=== PATIENT | male | born 1955 | race Caucasian/White ===

== ENCOUNTER 2017-12-26 08:18 | Observation (INO) | payer OTHER, MEDICAID ==
[~2017-12-26] VITALS: Ht 167.6 cm; Wt 74.5 kg
[~2017-12-26 08:18] MED LIST: ALPR-138 PO; HYDR10TA16 PO; PROM25TA5 PO; PROT40TA PO; REST15CA PO; [UNRECOGNIZED DRUG - OTHER] PO
[2017-12-26 08:20] VITALS: BP 145/91; PULSE 93; RESP 20; TEMP 99.1; O2SAT 98
[2017-12-26] MEDS ORDERED: SODIUM CHLORIDE 0.9% FLUSH 10 ML FLUSH IVF PRN (08:45)
[2017-12-26] MEDS ORDERED: NITROGLYCERIN 0.4 MG SL 25 TABS/BTL SL ONE (09:00)
[2017-12-26] MEDS ORDERED: ASPIRIN 81 MG CHEW TAB CHEW ONE (09:00)
--- NOTE | 2017-12-26 09:10 | PD ---
HPI Chief Complaint: Chest Pain Time Seen by Provider: 08:55 Travel History International Travel<30 days: No Contact w/Intl Traveler<30days: No Traveled to known affect area: No History of Present Illness HPI Patient is a 62-year-old states otherwise healthy male presents emergency department with chest pain and left side of his chest radiating the left shoulder was started in the afternoon yesterday. Patient states it hurts worse when he pushes on it or when he exerts himself. Accompanied with some mild shortness of breath and nausea as well as dizziness. States he had a stress test years ago which was normal, no history of heart problems or lung problems, has not taken anything to try to alleviate his symptoms. He states the symptoms are moderate in severity and waxing and waning. [facility] Past Medical History Cardiovascular Problems: Yes Hypertension: Yes Pancreatitis: Yes Social History Alcohol Use: Yes (OCC) Tobacco Use: Yes (1 PPD) Substance Use: Yes (MARIJANNA) Allergies-Medications (Allergen,Severity, Reaction): Coded Allergies: No Known Allergies (Verified Adverse Reaction, Unknown, 12/26/17) Reported Meds & Prescriptions Reported Meds & Active Scripts Active No Active Prescriptions or Reported Medications Review of Systems Except as stated in HPI: all other systems reviewed are Neg Physical Exam Narrative GENERAL: Well-developed well-nourished no obvious distress per SKIN: Focused skin assessment warm/dry. HEAD: Atraumatic. Normocephalic. EYES: Pupils equal and round. No scleral icterus. No injection or drainage. ENT: No nasal bleeding or discharge. Mucous membranes pink and moist. NECK: Trachea midline. No JVD. CARDIOVASCULAR: Regular rate and rhythm. No murmur appreciated. 2+ bilateral equal pulses in all 4 extremities. No reproducible chest wall pain RESPIRATORY: No accessory muscle use. Clear to auscultation. Breath sounds equal bilaterally. GASTROINTESTINAL: Abdomen soft, non-tender, nondistended. Hepatic and splenic margins not palpable. MUSCULOSKELETAL: No obvious deformities. No clubbing. No cyanosis. No edema. NEUROLOGICAL: Awake and alert. No obvious cranial nerve deficits. Motor grossly within normal limits. Normal speech. PSYCHIATRIC: Appropriate mood and affect; insight and judgment normal. Data Data Last Documented VS Vital Signs Date Time Temp Pulse Resp B/P (MAP) Pulse Ox O2 Delivery O2 Flow Rate FiO2 12/26/17 09:17 99 12/26/17 09:17 12/26/17 08:20 99.1 93 20 Room Air Orders Orders Electrocardiogram (12/26/17 08:42) Ckmb (Isoenzyme) Profile (12/26/17 08:42) Complete Blood Count With Diff (12/26/17 08:42) Comprehensive Metabolic Panel (12/26/17 08:42) Magnesium (Mg) (12/26/17 08:42) Prothrombin Time / Inr (Pt) (12/26/17 08:42) Act Partial Throm Time (Ptt) (12/26/17 08:42) Troponin I (12/26/17 08:42) Ecg Monitoring (12/26/17 08:42) Iv Access Insert/Monitor (12/26/17 08:42) Oximetry (12/26/17 08:42) Oxygen Administration (12/26/17 08:42) Sodium Chloride 0.9% Flush (Ns Flush) (12/26/17 08:45) Chest, Single Ap (12/26/17 ) Aspirin Chew (Aspirin Chew) (12/26/17 09:00) Nitroglycerin Sl (Nitrostat Sl) (12/26/17 09:00) CKMB (12/26/17 09:15) CKMB% (12/26/17 09:15) Admit Order (Ed Use Only) (12/26/17 ) Labs Laboratory Tests Test 12/26/17 09:15 White Blood Count 7.4 TH/MM3 Red Blood Count 4.71 MIL/MM3 Hemoglobin 14.2 GM/DL Hematocrit 41.4 % Mean Corpuscular Volume 87.9 FL Mean Corpuscular Hemoglobin 30.3 PG Mean Corpuscular Hemoglobin Concent 34.4 % Red Cell Distribution Width 13.1 % Platelet Count 192 TH/MM3 Mean Platelet Volume 8.5 FL Neutrophils (%) (Auto) 81.7 % Lymphocytes (%) (Auto) 10.7 % Monocytes (%) (Auto) 6.8 % Eosinophils (%) (Auto) 0.5 % Basophils (%) (Auto) 0.3 % Neutrophils # (Auto) 6.0 TH/MM3 Lymphocytes # (Auto) 0.8 TH/MM3 Monocytes # (Auto) 0.5 TH/MM3 Eosinophils # (Auto) 0.0 TH/MM3 Basophils # (Auto) 0.0 TH/MM3 CBC Comment DIFF FINAL Differential Comment Prothrombin Time 10.0 SEC Prothromb Time International Ratio 1.0 RATIO Activated Partial Thromboplast Time 26.1 SEC Blood Urea Nitrogen 13 MG/DL Creatinine 1.00 MG/DL Random Glucose 148 MG/DL Total Protein 7.0 GM/DL Albumin 3.6 GM/DL Calcium Level 8.6 MG/DL Magnesium Level 2.2 MG/DL Alkaline Phosphatase 62 U/L Aspartate Amino Transf (AST/SGOT) 19 U/L Alanine Aminotransferase (ALT/SGPT) 26 U/L Total Bilirubin 0.5 MG/DL Sodium Level 137 MEQ/L Potassium Level 3.7 MEQ/L Chloride Level 105 MEQ/L Carbon Dioxide Level 24.5 MEQ/L Anion Gap 8 MEQ/L Estimat Glomerular Filtration Rate 76 ML/MIN Total Creatine Kinase 160 U/L Creatine Kinase MB 1.2 NG/ML Troponin I LESS THAN 0.02 NG/ML MDM Medical Decision Making Medical Screen Exam Complete: Yes Emergency Medical Condition: Yes Differential Diagnosis Chest pain, ACS, ND, CAD, reflux, chest wall pain Narrative Course Patient room to the emergency department, chest pain relieved with nitroglycerin , fairly typical presentation for cardiac pain. Initial workup with EKG and troponin negative,. After initial workup discussed with the patient recommendations for chest pain center observation and he is agreeable. Diagnosis Primary Impression: Chest pain Admitting Information Admitting Physician Requests: Observation Scripts No Active Prescriptions or Reported Meds Condition: Stable Jonny Sylvester MD Dec 26, 2017 09:10
[2017-12-26 09:17] VITALS: O2SAT 99
[2017-12-26 09:27] LABS: BASOPHIL % 0.3 % (0.0-2.0); EOSINOPHIL % 0.5 % (0.0-4.0); HEMATOCRIT 41.4 % (39.0-51.0); HEMOGLOBIN 14.2 GM/DL (13.0-17.0); LYMPH % 10.7 % (9.0-44.0); LYMPHOCYTE # 0.8 TH/MM3 (1.0-4.8); MEAN CELL VOLUME 87.9 FL (80.0-100.0); MEAN CORPUSCULAR HEMOGLOBIN 30.3 PG (27.0-34.0); MEAN CORPUSCULAR HGB CONC 34.4 % (32.0-36.0); MEAN PLATELET VOLUME 8.5 FL (7.0-11.0); MONO % 6.8 % (0.0-8.0); MONOCYTE # 0.5 TH/MM3 (0-0.9); NEUT % 81.7 % (16.0-70.0); PLATELET COUNT 192 TH/MM3 (150-450); RED BLOOD COUNT 4.71 MIL/MM3 (4.50-5.90); RED CELL DISTRIBUTION WIDTH 13.1 % (11.6-17.2); WHITE BLOOD COUNT 7.4 TH/MM3 (4.0-11.0)
--- NOTE | 2017-12-26 09:41 | RADRPT ---
EXAM DATE/TIME: 12/26/2017 09:27 [facility] COMPARISON: No previous studies available for comparison. INDICATIONS : Left side chest pains radiating into left shoulder. MEDICAL HISTORY : None. SURGICAL HISTORY : None. ENCOUNTER: Initial ACUITY: 2 days PAIN SCORE: 8/10 LOCATION: Left chest FINDINGS: A single view of the chest demonstrates the lungs to be symmetrically aerated without evidence of mas s, infiltrate or effusion. The cardiomediastinal contours are unremarkable. Osseous structures are intact. CONCLUSION: 1. No acute cardiopulmonary disease. Merrick Fontenot MD on December 26, 2017 at 9:38 Board Certified Radiologist. This report was verified electronically.
[2017-12-26 09:43] LABS: ALBUMIN 3.6 GM/DL (3.4-5.0); AST (GOT) 19 U/L (15-37); BICARBONATE 24.5 MEQ/L (21.0-32.0); BLOOD UREA NITROGEN 13 MG/DL (7-18); CALCIUM 8.6 MG/DL (8.5-10.1); CHLORIDE 105 MEQ/L (98-107); GLOMERULAR FILTRATION RATE 76 ML/MIN (>89); GLUCOSE,RANDOM 148 MG/DL (74-106); MAGNESIUM 2.2 MG/DL (1.5-2.5); SODIUM (NA) 137 MEQ/L (136-145)
[2017-12-26 09:44] LABS: ALT (GPT) 26 U/L (12-78)
[2017-12-26 09:47] LABS: ALKALINE PHOSPHATASE 62 U/L (45-117); TOTAL BILIRUBIN ADULT 0.5 MG/DL (0.2-1.0); TROPONIN I LESS THAN 0.02 NG/ML (0.02-0.05)
[2017-12-26] MEDS ORDERED: ONDANSETRON HCL 4 MG/2 ML VIAL IV PUSH PRN (12:30)
[2017-12-26] MEDS ORDERED: KETOROLAC TROMETHAMINE 30 MG/ML (IVP) VIAL IVP ONE (12:30)
[2017-12-26] MEDS ORDERED: ALPRAZolam 0.25 MG TAB PO PRN (12:30)
[2017-12-26] MEDS ORDERED: PANTOPRAZOLE SOD 40 MG DELAYED RELEASE TAB PO SCH (12:30)
[2017-12-26] MEDS ORDERED: ACETAMINOPHEN/HYDROcodone 325 MG/7.5 MG TAB PO PRN (12:30)
[2017-12-26] MEDS ORDERED: ACETAMINOPHEN 500 MG CPLT PO PRN (12:30)
[2017-12-26 12:37] VITALS: BP 121/69
--- NOTE | 2017-12-26 12:45 | HHI.HP ---
HPI Primary Care Physician [facility] Chief Complaint Chest pain History of Present Illness This is a 62-year-old male that presents to ED with the complaint of chest discomfort. Patient states that while he was at [employer] doing some shopping yesterday afternoon that he developed some dizziness, shortness of breath, nausea, and achiness in the left chest. States the discomfort is still present. Denies emesis. But nothing to worsen or improve his symptoms. Rates the discomfort as a 5 out of 10. Denies history of CAD. States he has had a couple stress test. States he had one here which is correct, patient had a nonischemic Slim protocol ETT in 2010. States he also had a chemical stress test a few years ago at the [facility] that he states was normal. Denies history of hypertension, hyperlipidemia, diabetes. Does not know his family history. Denies recent illness. Denies recent travel. Review of Systems General: Patient denies fevers, chills recent, and recent travel HEENT: Patient denies headache, sore throat, difficulty swallowing. Cardiovascular: Has the chest discomfort as mentioned above. Denies sensation of heart beating rapidly or irregularly. No syncope. He was diaphoretic. Respiratory: He was short of breath. Denies inspirational chest discomfort. Denies coughing wheezing or hemoptysis. GI: He was nauseous without emesis. Denies abdominal pain. Patient denies diarrhea, constipation, and bloody stools. Musculoskeletal: Chronic neck and back pain. Patient denies joint pain or edema. Denies calf pain or edema. Neurovascular: Patient denies numbness, tingling, weakness in extremities. Denies headache. Endocrine: Denies polyuria and polydipsia. Hematologic: Denies easy bruising. Skin: Denies rash or itching. Past Family Social History Allergies: Coded Allergies: No Known Allergies (Verified Allergy, Unknown, 12/26/17) Past Medical History PTSD. Past history of tobacco abuse. Had history of chronic pancreatitis for 20 years but states that he has had no issues over the last 3 years. Denies hypertension, hyperlipidemia, diabetes, and CAD. Past Surgical History Noncontributory. Reported Medications Reported Meds & Active Scripts Active No Active Prescriptions or Reported Medications Active Ordered Medications Current Medications Medications (Trade) Dose Ordered Sig/Nina Route Start Time Stop Time Status Last Admin (NS Flush) 2 ml UNSCH PRN IVF 12/26/17 08:45 (Tylenol) 500 mg Q4H PRN PO 12/26/17 12:30 ([place] 7.5-325 Mg) 1 tab Q4H PRN PO 12/26/17 12:30 (Zofran Inj) 4 mg Q6H PRN IV PUSH 12/26/17 12:30 (Protonix) 40 mg DAILY PO 12/26/17 12:30 (Aspirin) 325 mg DAILY PO 12/27/17 09:00 (Xanax) 0.25 mg Q8H PRN PO 12/26/17 12:30 Family History He is unaware of his family medical history. Social History Quit smoking 2 years ago but prior to that he smoked on average 1 pack of cigarettes daily for 20 years. Rarely has alcohol. Patient states he has medicinal marijuana that he is prescribed for his PTSD. Physical Exam Vital Signs Vital Signs Date Time Temp Pulse Resp B/P (MAP) Pulse Ox O2 Delivery O2 Flow Rate FiO2 12/26/17 09:17 99 12/26/17 09:17 99 12/26/17 08:20 99.1 93 20 145/91 (109) 98 Room Air Physical Exam GENERAL: This is a well-nourished, well-developed patient, in no apparent distress. Patient speaks in clear complete sentences. Patient is pleasant. HEENT: Head is atraumatic and normocephalic. Neck is supple without lymphadenopathy and trachea is midline. No JVD or carotid bruits. CARDIOVASCULAR: Regular rate and rhythm without murmurs, gallops, or rubs. RESPIRATORY: Clear to auscultation. Breath sounds equal bilaterally. No wheezes , rales, or rhonchi. There is left upper chest wall tenderness that is also reproduced with movement of his left arm. This is worsening the discomfort that he has had since yesterday at 5:00 in the afternoon. No use of accessory muscles. GASTROINTESTINAL: Abdomen is nontender, nondistended. Abdomen soft. No obvious pulsatile mass or bruit. No CVA tenderness. Strong femoral pulses bilaterally. Normal bowel sounds in all quadrants. MUSCULOSKELETAL: Patient is moving upper and lower extremities freely. No calf tenderness or edema, no Homans sign. Strong pulses in upper and lower extremities. NEUROLOGICAL: Patient is alert and oriented. Cranial nerves 2-12 are grossly intact. No focal deficits and speech is clear. SKIN: No rash and turgor is normal. Laboratory Laboratory Tests Test 12/26/17 09:15 White Blood Count 7.4 Red Blood Count 4.71 Hemoglobin 14.2 Hematocrit 41.4 Mean Corpuscular Volume 87.9 Mean Corpuscular Hemoglobin 30.3 Mean Corpuscular Hemoglobin Concent 34.4 Red Cell Distribution Width 13.1 Platelet Count 192 Mean Platelet Volume 8.5 Neutrophils (%) (Auto) 81.7 Lymphocytes (%) (Auto) 10.7 Monocytes (%) (Auto) 6.8 Eosinophils (%) (Auto) 0.5 Basophils (%) (Auto) 0.3 Neutrophils # (Auto) 6.0 Lymphocytes # (Auto) 0.8 Monocytes # (Auto) 0.5 Eosinophils # (Auto) 0.0 Basophils # (Auto) 0.0 CBC Comment DIFF FINAL Differential Comment Prothrombin Time 10.0 Prothromb Time International Ratio 1.0 Activated Partial Thromboplast Time 26.1 Blood Urea Nitrogen 13 Creatinine 1.00 Random Glucose 148 Total Protein 7.0 Albumin 3.6 Calcium Level 8.6 Magnesium Level 2.2 Alkaline Phosphatase 62 Aspartate Amino Transf (AST/SGOT) 19 Alanine Aminotransferase (ALT/SGPT) 26 Total Bilirubin 0.5 Sodium Level 137 Potassium Level 3.7 Chloride Level 105 Carbon Dioxide Level 24.5 Anion Gap 8 Estimat Glomerular Filtration Rate 76 Total Creatine Kinase 160 Creatine Kinase MB 1.2 Troponin I LESS THAN 0.02 Result Diagram: 12/26/17 0915 12/26/17 0915 Imaging Last 48 hours Impressions Chest X-Ray 12/26/17 0000 Signed Impressions: Service Date/Time: Tuesday, December 26, 2017 09:27 - CONCLUSION: 1. No acute cardiopulmonary disease. Merrick Fontenot MD Course Initial EKG is sinus rhythm at 82 with an complete right bundle branch block. No significant ST segment depressions or elevations. Caprini VTE Risk Assessment Caprini VTE Risk Assessment: Mod/High Risk (score >= 2) Caprini Risk Assessment Model Point Value = 1 Point Value = 2 Point Value = 3 Point Value = 5 Age 41-60 Minor surgery BMI > 25 kg/m2 Swollen legs Varicose veins or History of unexplained or recurrent spontaneous Oral contraceptives or hormone replacement Sepsis (< 1 month) Serious lung disease, including pneumonia (< 1 month) Abnormal pulmonary function Acute myocardial infarction Congestive heart failure (< 1 month) History of inflammatory bowel disease Medical patient at bed rest Age 61-74 Arthroscopic surgery Major open surgery (> 45 min) Laparoscopic surgery (> 45 min) Malignancy Confined to bed (> 72 hours) Immobilizing plaster cast Central venous access Age >= 75 History of VTE Family history of VTE Factor V Leiden Prothrombin [id number] Lupus anticoagulant Anticardiolipin antibodies Elevated serum homocysteine Heparin-induced thrombocytopenia Other congenital or acquired thrombophilia Stroke (< 1 month) Elective arthroplasty Hip, pelvis, or leg fracture Acute spinal cord injury (< 1 month) Prophylaxis Regimen Total Risk Factor Score Risk Level Prophylaxis Regimen 0-1 Low Early ambulation 2 Moderate Order ONE of the following: *Sequential Compression Device (SCD) *Heparin 5000 units SQ BID 3-4 Higher Order ONE of the following medications: *Heparin 5000 units SQ TID *Enoxaparin/Lovenox 40 mg SQ daily (WT < 150 kg, CrCl > 30 mL/min) *Enoxaparin/Lovenox 30 mg SQ daily (WT < 150 kg, CrCl > 10-29 mL/min) *Enoxaparin/Lovenox 30 mg SQ BID (WT < 150 kg, CrCl > 30 mL/min) AND/OR *Sequential Compression Device (SCD) 5 or more Highest Order ONE of the following medications: *Heparin 5000 units SQ TID (Preferred with Epidurals) *Enoxaparin/Lovenox 40 mg SQ daily (WT < 150 kg, CrCl > 30 mL/min) *Enoxaparin/Lovenox 30 mg SQ daily (WT < 150 kg, CrCl > 10-29 mL/min) *Enoxaparin/Lovenox 30 mg SQ BID (WT < 150 kg, CrCl > 30 mL/min) AND *Sequential Compression Device (SCD) Assessment and Plan Assessment and Plan * Chest pain: Patient developed chest discomfort yesterday while doing some shopping that is still present at this time. Does seem to be reproducible pressing on the area as well as movement of the left arm. He will continue to have serial cardiac enzymes and EKGs for ruling out purposes. We will give him IV Toradol to see if that helps with his discomfort. He will be seen by Dr. Jaramillo of cardiology in the chest pain center and likely have stress testing after ruling out. States he would not be able to walk on the treadmill with his chronic neck and back pain. He will be discharged home if stress test is nonischemic with instructions to follow-up with PCP. Return to ED for interval issues. Pb Malik Dec 26, 2017 12:45
[2017-12-26 13:27] LABS: TROPONIN I LESS THAN 0.02 NG/ML (0.02-0.05)
[2017-12-26 14:39] VITALS: PULSE 77
[2017-12-26 15:44] LABS: TROPONIN I LESS THAN 0.02 NG/ML (0.02-0.05)
--- NOTE | 2017-12-26 17:03 | EKG ---
Date Performed: 12/26/2017 Time Performed: 08:27:16 PTAGE: 62 years EKG: Sinus rhythm INCOMPLETE RIGHT BUNDLE BRANCH BLOCK BORDERLINE ECG Since PREVIOUS TRACING , no significant change noted PREVIOUS TRACIN08/07/2011 12.16 DOCTOR: Mee Jaramillo Interpretating Date/Time 12/26/2017 17:02:20
[2017-12-26] MEDS ORDERED: REGADENOSON INJ 0.4 MG/5 ML SYR ONE (17:19)
--- NOTE | 2017-12-26 17:36 | HHI.DCPOC ---
Discharge Care Plan Diagnosis: (1) Chest pain Goals to Promote Your Health * To prevent worsening of your condition and complications * To maintain your health at the optimal level Directions to Meet Your Goals Take your medications as prescribed Follow your dietary instruction Follow activity as directed Keep your appointments as scheduled Take your immunizations and boosters as scheduled If your symptoms worsen call your PCP, if no PCP go to Urgent Care Center or Emergency Room Smoking is Dangerous to Your Health. Avoid second hand smoke Call the 24-hour hour crisis hotline for domestic abuse at Pb Malik Dec 26, 2017 17:36
--- NOTE | 2017-12-26 18:17 | RADRPT ---
EXAM DATE/TIME: 12/26/2017 17:15 [facility] COMPARISON: No previous studies available for comparison. INDICATIONS : Left sided chest pain with shortness of breath for two days. Angina. Right bundle branch block. DOSE: 25.4 mCi Tc99m Myoview at stress. 8.5 mCi Tc99m Myoview at rest. 0.4 mg Lexiscan STRESS SYMPTOMS: Dyspnea, nausea, dizziness and chest pain. EJECTION FRACTION: 66% MEDICAL HISTORY : None SURGICAL HISTORY : None. ENCOUNTER: Initial ACUITY: 2 days PAIN SCALE: 7/10 LOCATION: Left chest TECHNIQUE: The patient underwent pharmacologic stress with infusion of prescribed dose. Continuous ECG tracing was monitored during stress. Gated SPECT imaging was performed after stress and conventional SPECT i maging was performed at rest. The examination was performed on a SPECT/CT scanner, both attenuation and non-corrected datasets were reviewed. FINDINGS: DISTRIBUTION: The maximum perfused segment at stress is in the anterobasal wall. PERFUSION STUDY: The pattern of perfusion at stress is within normal limits with regional variations of perfusion with in 25%. Summed stress score is zero. The pattern of perfusion at stress and rest is unchanged and t here is no evidence of redistribution. GATED STUDY: There is intact wall motion and thickening without hypokinetic or dyskinetic segments. CONCLUSION: 1. No evidence of stress-induced ischemia. 2. Intact wall motion with 66% ejection fraction. RISK CATEGORY: Low (<1% Annual Mortality Rate) Arias Sharma MD on December 26, 2017 at 18:14 Board Certified Radiologist. This report was verified electronically.
[2017-12-27] MEDS ORDERED: ASPIRIN 325 MG TAB PO SCH (09:00)
--- NOTE | 2017-12-27 15:57 | EKG ---
Date Performed: 12/26/2017 Time Performed: 14:21:16 PTAGE: 62 years EKG: Sinus rhythm POSSIBLE RIGHT VENTRICULAR CONDUCTION DELAY BORDERLINE ECG PREVIOUS TRACING : 12/26/2017 08.27 Since previous tracing, no significant change noted DOCTOR: Jose Francisco Lamb Interpretating Date/Time 12/27/2017 15:54:27
--- NOTE | 2017-12-27 15:59 | TR ---
Date Performed: 12/26/2017 Time Performed: 17:30:36 DOCTOR: Jose Francisco Lamb DRUG LIST: CLINICAL HISTORY: CHEST PAIN REASON FOR TEST: CHEST PAIN REASON FOR ENDING: OBSERVATION: CONCLUSION: COMMENTS: Lexiscan stress test was performed under standard four minute protocol. Radionuclide was injected one minute prior to ending the test. No electrocardiographic abormalities were present t o suggest ischemia. Nuclear imaging and interpretation are pending.
== END 2017-12-26 20:34 | disposition home or self-care (01) ==
LOC: NEPC 08:18 → NEDA 10:26 → NEPFCDU 13:06
PROVIDERS: ADMIT Internal Medicine Interventional Cardiology; ATTEND Internal Medicine Interventional Cardiology
DX: R07.89 Other chest pain (principal); R42 Dizziness and giddiness; R06.02 Shortness of breath; I10 Essential (primary) hypertension; Z87.19 Personal history of other diseases of the digestive system; F43.10 Post-traumatic stress disorder, unspecified; Z87.891 Personal history of nicotine dependence; F12.90 Cannabis use, unspecified, uncomplicated; I45.10 Unspecified right bundle-branch block; Z79.899 Other long term (current) drug therapy
CPT/HCPCS: 71045; 78452; 80053; 82550; 82552; 83735; 84484; 85025; 85610; 85730; 93005; 93017; 96374; 96375; 99285; A9502; G0378; J1885; J2405; J2785